=== PATIENT | male | born 1945 | race Caucasian/White ===

== ENCOUNTER 2019-07-18 08:54 | Observation (INO) | payer OTHER ==
[~2019-07-18] VITALS: Ht 182.9 cm; Wt 125.6 kg
[2019-07-18] VITALS (11 sets, daily range): BP systolic 87–126; BP diastolic 45–710
--- NOTE | ~2019-07-18 | H ---
[address] [address] HISTORY AND PHYSICAL Name: PHUC PRIETO Room: [address] Jolene Han#: [id number] Admission: 07/18/19 Attend Phys: Dinesh Diehl MD, Discharge: 07/19/19 Date of : 45 Report #: [id number] THIS REPORT FOR: //name// Please refer to the History and Physical performed in the physician's office. By: 1424Medical Records Staff EUN /HAYDEN
[2019-07-18 09:50] LABS: HEMATOCRIT 41.7 % (42.0-52.0); HEMOGLOBIN 14.2 gm/dL (14.0-18.0); MCH 30.5 pg (26.0-34.0); MCHC 33.9 g/dL (28.0-37.0); MCV 89.8 fL (80.0-100.0); MPV 8.8 fl. (7.2-11.1); RBC 4.65 mil/uL (4.50-6.00); RDW-CV 14.6 % (10.5-14.5); WBC 5.1 thou/uL (4.0-11.0)
[2019-07-18 10:01] LABS: ANION GAP 8 mmol/L (7-16); BUN 32 mg/dL (7-18); CALCIUM 9.6 mg/dL (8.5-10.1); CHLORIDE 104 mmol/L (98-107); CO2 28 mmol/L (21-32); CREATININE 1.4 mg/dL (0.6-1.3); GLUCOSE 111 mg/dL (70-99); POTASSIUM 4.1 mmol/L (3.5-5.1); SODIUM 140 mmol/L (136-145)
[2019-07-18 10:05] LABS: ALBUMIN 3.7 g/dL (3.4-5.0); ALKALINE PHOSPHATASE 58 U/L (46-116); CHOLESTEROL 172 mg/dL (<200); HDL CHOLESTEROL 43 mg/dL (>40); LDL CHOLESTEROL 99 mg/dL (<100); SERUM ASSESSMENT Clear; SGOT 20 U/L (15-37); SGPT 40 U/L (30-65); TOTAL BILIRUBIN 0.3 mg/dL (<0.1-1.0); TOTAL PROTEIN 7.1 g/dL (6.4-8.2); TRIGLYCERIDE 154 mg/dL (<150); VLDL 31 mg/dL (<40)
[2019-07-18 10:07] LABS: APTT 26.2 Seconds (25.0-31.3); PROTIME 10.2 Seconds (9.20-11.50)
[2019-07-18] MEDS ORDERED: INTERMEZZO3.5 MG PO (10:11)
[2019-07-18] MEDS ORDERED: ULTRAM 50MG TAB50 MG PO (10:12)
[2019-07-18] MEDS ORDERED: SIMVASTATIN80 MG PO (10:13)
[2019-07-18] MEDS ORDERED: FLOMAX0.4 MG PO (10:14)
[2019-07-18] MEDS ORDERED: PRINIVIL40 MG PO (10:15)
[2019-07-18] MEDS ORDERED: PAIN RELIEF TA1 EACH PO (10:16)
[2019-07-18] MEDS ORDERED: VITAMIN C WIT1000 MG PO (13:15)
[2019-07-18] MEDS ORDERED: VITAMIN D1000 UNI2 PO (13:15)
[2019-07-18] MEDS ORDERED: OMEGA 3 500 SO1 EACH PO (13:16)
[2019-07-18] MEDS ORDERED: CALCIUM 600+D1 EACH PO (13:17)
[2019-07-18] MEDS ORDERED: GLUCOSAMINE H1500 MG PO (13:18)
[2019-07-18] MEDS ORDERED: SUPER THERAVIT1 EACH PO (13:18)
[2019-07-18] MEDS ORDERED: COLLAGEN PLUS1 EACH PO (13:19)
[2019-07-18] MEDS ORDERED: TYLENOL PM PO (13:20)
[2019-07-18] MEDS ORDERED: NOVAFERRUM 5050 MG PO (13:20)
[2019-07-18] MEDS ORDERED: ASA81BEC PO (13:22)
[2019-07-18] MEDS ORDERED: GARCINIA CAMBO1 EACH PO (13:22)
[2019-07-18] MEDS ORDERED: SUPER B-50 COM1 EACH PO (13:24)
[2019-07-18 14:07] LABS: CK-MB MASS 1.7 ng/mL (<0.5-3.6); TROPONIN-I LEVEL <0.06 ng/mL (<0.06)
--- NOTE | 2019-07-18 14:36 | NUR ---
RECEIEVIED REPORT FROM SERGEY RN IN CLAIM CLINICIAN OF EXPECED ADMISSION POST HEART CATH AT 1226-PT REPORTED TO HAVE HAD 2 STENTS PLACED, 1 TO 2ND DIAGNOL AND 1 TO LAD WITH ACCESS TO RIGHT GROIN WITH ANGIOCEL NOTED-PT IS REPORTED TO NEED FOLLOW UP IN 2 WEEKS FOR FURTHER STENT PLACEMENT WELL- PT ARRIVED TO FLOOR AT 1240 VIA BED, SON AT SIDE- GROCERY ASSOCIATE PLACED ORDERED, SR NOTED-PT A&O X4- CONTINENT OF B/B- NOTED TO HAVE URINATED 400CC PER URINAL AT TIME OF ADMISSION- LCTA, DIMINISHED IN BASES- VS 97.1 18 117/74 60 98% ON RA- POST CATH VITALS IN PLACE ORDERED WITH CONTINUED GROIN CHECKS- RIGHT GROIN SIGHT WITH GAUZE/TRANSPARENT DRESSING C/D/I, NO HEMATOMA NOTED; SENSATION INTACT WITH CAP < 3- ABD SOFT/OBESE/NON-TENDER, BS X4 QUADS- LAST BM REPORTED 07/17/19- IV NOTED TO LEFT AC INTACT, IVF INFUSSING PRESCIBED- GOOD PO INTAKE NOTED WITH LUNCH- PT DENIES ANY C/O PAIN/DISCOMFORT- ADEQUITE EYE SIGHT NOTED WITH GLASSES IN PLACE- PT REPORTS TO HAVE PARTIAL, BUT NOT WITH HIM-SKIN C/D/I- CALL LIGHT AND PERSONAL BELONGINGS WITH IN REACH- PT MAKES NEEDS KNOWN- ALL NEEDS MET AT THIS TIME-WCTM
[2019-07-19 00:57] VITALS: BP 99/42
[2019-07-19 04:49] VITALS: BP 126/66
[2019-07-19 04:56] LABS: HEMATOCRIT 38.5 % (42.0-52.0); HEMOGLOBIN 12.9 gm/dL (14.0-18.0); MCH 30.2 pg (26.0-34.0); MCHC 33.6 g/dL (28.0-37.0); MPV 8.4 fl. (7.2-11.1); RBC 4.27 mil/uL (4.50-6.00); RDW-CV 14.8 % (10.5-14.5); WBC 7.8 thou/uL (4.0-11.0)
[2019-07-19 05:37] LABS: ALBUMIN 3.2 g/dL (3.4-5.0); CALCIUM 8.8 mg/dL (8.5-10.1); CK-MB MASS 2.1 ng/mL (<0.5-3.6); CREATININE 1.4 mg/dL (0.6-1.3); POTASSIUM 4.2 mmol/L (3.5-5.1); TOTAL BILIRUBIN 0.3 mg/dL (<0.1-1.0); TOTAL PROTEIN 6.4 g/dL (6.4-8.2); TROPONIN-I LEVEL 0.18 ng/mL (<0.06)
[2019-07-19 07:00] VITALS: BP 106/48
--- NOTE | 2019-07-19 07:37 | NUR ---
VSS. SEE MAR. SEE CHARTING. HOURLY ROUNDING FOR SAFETY. PROGRESSING TOWARDS GOALS.
--- NOTE | 2019-07-19 09:29 | EKG ---
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
--- NOTE | 2019-07-19 09:34 | EKG ---
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
[2019-07-19 09:49] VITALS: BP 95/45
--- NOTE | 2019-07-19 09:52 | NUR ---
INITAL ASSESSMENT COMPLETED CHARTED. VSS. TRACING SR ON MONITOR. PT DENIES PAIN, SOA, CP, N/V/D. NO NEW CONCERNS NOTED AT THIS TIME. HOURLY ROUNDING IN PLACE FOR PT SAFETY. CLWR.
[2019-07-19 10:06] VITALS: BP 95/45
[2019-07-19] MEDS ORDERED: BRILINTA60 MG PO (10:17)
--- NOTE | 2019-07-20 14:22 | CARD ---
[address] [address] CARDIAC CATH REPORT Name: PHCU PRIETO Room: [address] Jolene Han#: [id number] Admission: 07/18/19 Attend Phys: Dinesh Diehl MD, Discharge: 07/19/19 Date of : 45 Report #: [id number] THIS REPORT FOR: //name// APPROVED REPORT Study performed: 07/18/2019 09:53:14 Patient Details The patient is a 74 year-old male Event Personnel Dinesh Diehl Vibrator Equipment Tester, Hanna Thomas RN Side Panel Padder, Estevan Orozco RTR ScrubAniyah Becki RTR Monitor, Nickolas Ulrich PICKER / PACKER Monitor Procedures Performed Left Heart Cath w/or w/o Coronaries 4286645 [facility] Place w/wo Plasty Addl BR DIAG [address] w/wo Plasty Single LAD 593322 , Left Heart Catheterization Indication Positive stress test Risk Factors Hypercholesterolemia, Hypertension Admission/Lab Medications/Medications given during procedure Angiomax bolus and infusion Procedure Narrative The patient was brought electively to the Cardiac Catheterization Laboratory and was prepped and draped in a sterile manner. The right femoral was infiltrated with 2% Lidocaine subcutaneous anesthesia. A [place] 6 FR sheath was inserted into the RFA. Coronary angiography was performed using coronary diagnostic catheters. The right coronary system was accessed and visualized with a JR4 catheter. The left coronary system was accessed and visualized with a JL4 catheter. The left ventricle was accessed and visualized with a PIG catheter. Left ventricular/Aortic Valve gradient assessed via catheter pullback. Pre-demployment femoral angiogram was performed . The patient tolerated the procedure well and there were no complications associated with the procedure. There was no hematoma. 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 The left ventricular ejection fraction is estimated to be 60%. Left ventricular wall motion abnormalities are not present. There is no mitral insufficiency. Hemodynamics The aortic pressure is 134/51 mmHg with a mean of 74 mmHg. The left ventricular pressure is 119/6 mmHg with a mean of mmHg. The left ventricular end diastolic pressure is 14 mmHg. There was no gradient across the aortic valve upon pullback. PCI Technique Lesion Anticoagulation was achieved with Angiomax. Percutaneous coronary intervention was performed on the second diagnonal branch segment. The lesion stenosis prior to intervention was 90% with ZURDO 3 flow. A 6FR XB 3.5 100CM Guide Catheter was used to engage the ostium. A IG: BMW 190cm Interventional Guidewire was used to cross the lesion. BALLOON DILATION A Balloon catheter Mini Trek RX 2.0 X 8 was inserted and inflated up to 8.00atm for 9seconds. STENT DEPLOYMENT A drug-eluting stent [place] RX Stent 2.0X12mm was inserted and inflated up to 14.00atm for 8seconds. Final angiography reveals 0 % stenosis with ZURDO 3 flow. PCI Technique Lesion 2 [place] [address] CARDIAC CATH REPORT Name: PHUC PRIETO Room: [address] Jolene MAmmyRAmmy#: [id number] Admission: 07/18/19 Attend Phys: Dinesh Diehl MD, Discharge: 07/19/19 Date of : 45 Report #: [id number] Percutaneous Coronary Intervention was performed on the mid left anterior descending. Percutaneous coronary intervention was performed on the mid LAD. The lesion stenosis prior to intervention was 80% with ZURDO flow. Balloon Dilation A Balloon catheter Trek RX 2.75 X 12 was inserted and inflated up to 18.00atm for 10seconds. Stent Deployment A stent Gregg RX Stent 3.0X18mm was inserted and inflated up to 12.00atm for 9seconds. Additional Inflation: 12.00atm for 12seconds. Final angiography reveals 0 % stenosis with ZURDO 3 flow. PCI Technique Lesion 3 Percutaneous Coronary Intervention was performed on the ostium of the second diagonal. The lesion stenosis prior to intervention was 75% with ZURDO 3 flow. Balloon Dilation A Balloon catheter Trek RX 2.25 X 8 was inserted and inflated up to 10atm for (seconds. Final angiography reveals 20 % stenosis with ZURDO 3 flow. Conclusion #1 Significant coronary artery disease characterized by the following A 80% mid LAD stenosis with 75% ostial second diagonal and 90% mid second diagonal stenosis B 80% focal stenosis of the midportion of the anomalous origin circumflex which takes off from the right coronary cusp C nondominant right coronary artery with 70% proximal narrowing #2 normal left ventricular systolic function, estimate ejection fraction being 60% #3 normal left-sided hemodynamic study #4 successful percutaneous coronary [place] [address] CARDIAC CATH REPORT Name: PHUC PRIETO Room: [address] Jolene Han#: [id number] Admission: 07/18/19 Attend Phys: Dinesh Diehl MD, Discharge: 07/19/19 Date of : 45 Report #: [id number] of drug-eluting stent at the site of 80% mid LAD stenosis with 0% residual narrowing #5 successful percutaneous coronary intervention with deployment of drug-eluting stent at site of 90% mid second diagonal stenosis with 0% residual narrowing #6 successful percutaneous transluminal coronary angioplasty at the site of 75% ostial second diagonal narrowing with 20% residual narrowing. Recommendations Cardiac Risk Reduction Program Aggressive Medical Therapy Medications Administered Aspirin (any) Ticagrelor Diagnostic Cath Approved by: Dinesh Diehl MD Date/Time: 07/20/2019 14:20:44 <ELECTRONICALLY SIGNED> By: Dinesh Diehl MD, [facility] 07/20/19 1422 142 1422Dinesh Diehl MD, FACC /INF
--- NOTE | 2019-07-21 10:27 | D ---
[address] [address] DISCHARGE SUMMARY Name: PHUC PRIETO Room: [address] Jolene Han#: [id number] Admission: 07/18/19 Attend Phys: Dinesh Diehl MD, Discharge: 07/19/19 Date of : 45 Report #: [id number] THIS REPORT FOR: //name// CC: Dinesh Quinonez Castellanos DATE OF SERVICE: 07/19/2019 FINAL DISCHARGE DIAGNOSES: 1. Abnormal nuclear stress test. 2. Coronary artery disease. 3. Status post percutaneous coronary intervention of the left anterior descending and diagonal. 4. Hypertension. 5. Hyperlipidemia. 6. History of cerebrovascular accident. PROCEDURES: 07/18/2019 - left heart catheterization, selective coronary arteriography, and percutaneous coronary intervention with deployment of drug-eluting stents in the second diagonal and mid LAD. The patient is a 74-year-old male with a recently abnormal nuclear stress test. He has underlying hypertension, hyperlipidemia, and a history of remote CVA. He underwent cardiac catheterization on 07/18/2019, which revealed 90% second diagonal stenosis with 80% stenosis of the mid LAD after the first septal nut steamer and first diagonal. 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 I performed complex intervention on the LAD and diagonal with stenting of the diagonal and angioplasty and stenting of the LAD with a good angiographic result and 0% residual narrowing at both sites following stent deployment. He did well post-procedurally with good hemostasis at the right femoral site of catheterization. Laboratory revealed sodium 142, potassium 4.2, BUN 29 down from 32, creatinine 1.4, unchanged from preprocedurally. Glucose 105. Hemoglobin 12.9, white blood cell count 7800 with 194,000 platelets. Troponin birahima inconsequentially to 0.18. The patient ambulated in the hallways without difficulty and there was good hemostasis at the right femoral site of catheterization. He was discharged to home on the following medications: Ascorbic acid 1000 mg daily, aspirin 81 mg daily, calcium carbonate 1 tablet daily, cholecalciferol 1000 units daily, chromium gus supplement 1 tablet daily, glucosamine 1500 mg daily, iron 50 mg daily, lisinopril 40 mg daily, multivitamin 1 tablet daily, fish oil 520 [place] [address] DISCHARGE SUMMARY Name: PHUC PRIETO Room: [address] Jolene Han#: [id number] Admission: 07/18/19 Attend Phys: Dinesh Diehl MD, Discharge: 07/19/19 Date of : 45 Report #: [id number] daily, simvastatin 10 mg daily, tamsulosin 0.4 mg daily, ticagrelor 90 mg b.i.d., vitamin B 1 tablet daily, zolpidem 10 mg daily, and Tylenol PM at bedtime as well as tramadol 50 mg daily as needed. The patient is discharged to home in stable condition on 07/26/2019. He will require stage intervention to the anomalous origin circumflex, which has 80% stenosis in its proximal-mid portion. This was discussed with the patient. He will see my nurse practitioner, Adela Pickett, on 07/26/2019 in followup of this hospitalization. <ELECTRONICALLY SIGNED> By: Dinesh Diehl MD, FACC 07/21/19 1027 0949 1006Jospencer Diehl MD, FACC /nt
== END 2019-07-19 11:32 | disposition home or self-care (01) ==
LOC: M.CL 08:54 → M.TBA-CV 11:56 → M.2W 11:56 → M.CL 07-19 10:00 → M.2W 07-19 11:32
PROVIDERS: ADMIT Internal Medicine
DX: I25.10 Atherosclerotic heart disease of native coronary artery without angina pectoris (principal); I10 Essential (primary) hypertension; E78.5 Hyperlipidemia, unspecified; E78.00 Pure hypercholesterolemia, unspecified; Z86.73 Personal history of transient ischemic attack (TIA), and cerebral infarction without residual deficits; Z79.82 Long term (current) use of aspirin; Z79.899 Other long term (current) drug therapy; Z23 Encounter for immunization

== ENCOUNTER 2019-08-17 07:41 | Observation (INO) | payer OTHER ==
[2019-08-17] VITALS (9 sets, daily range): BP systolic 11–122; BP diastolic 48–75
[~2019-08-17] VITALS: Ht 182.9 cm; Wt 120.7 kg
[~2019-08-17 07:41] MED LIST: ASA81BEC PO; BRILINTA60 MG PO; CALCIUM 600+D1 EACH PO; COLLAGEN PLUS1 EACH PO; FLOMAX0.4 MG PO; GARCINIA CAMBO1 EACH PO; GLUCOSAMINE H1500 MG PO; INTERMEZZO3.5 MG PO; NOVAFERRUM 5050 MG PO; OMEGA 3 500 SO1 EACH PO; PAIN RELIEF TA1 EACH PO; PRINIVIL40 MG PO; SIMVASTATIN80 MG PO; SUPER B-50 COM1 EACH PO; SUPER THERAVIT1 EACH PO; TYLENOL PM PO; ULTRAM 50MG TAB50 MG PO; VITAMIN C WIT1000 MG PO; VITAMIN D1000 UNI2 PO
[2019-08-17 08:40] LABS: HEMATOCRIT 43.1 % (42.0-52.0); HEMOGLOBIN 14.7 gm/dL (14.0-18.0); MCH 30.4 pg (26.0-34.0); MCV 89.3 fL (80.0-100.0); MPV 8.5 fl. (7.2-11.1); RBC 4.83 mil/uL (4.50-6.00); RDW-CV 14.4 % (10.5-14.5)
[2019-08-17] MEDS ORDERED: VICODIN ES 7.51 EACH PO (08:43)
[2019-08-17 08:52] LABS: APTT 26.5 Seconds (25.0-31.3); PROTIME 10.2 Seconds (9.20-11.50)
[2019-08-17 08:57] LABS: ANION GAP 11 mmol/L (7-16); BUN 22 mg/dL (7-18); CALCIUM 9.9 mg/dL (8.5-10.1); CHLORIDE 102 mmol/L (98-107); CO2 26 mmol/L (21-32); CREATININE 1.5 mg/dL (0.6-1.3); GLUCOSE 111 mg/dL (70-99); POTASSIUM 4.2 mmol/L (3.5-5.1); SODIUM 139 mmol/L (136-145)
[2019-08-17 09:01] LABS: CHOLESTEROL 155 mg/dL (<200); HDL CHOLESTEROL 40 mg/dL (>40); LDL CHOLESTEROL 82 mg/dL (<100); SERUM ASSESSMENT Clear; TC:HDL 3.9 Ratio (Not establshd); TRIGLYCERIDE 169 mg/dL (<150); VLDL 34 mg/dL (<40)
--- NOTE | 2019-08-17 14:18 | EKG ---
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
--- NOTE | 2019-08-17 14:38 | CARD ---
[address] [address] CARDIAC CATH REPORT Name: PHUC PRIETO Room: [address] Jolene MAmmyRAmmy#: [id number] Admission: 08/17/19 Attend Phys: Dinesh Diehl MD, Discharge: Date of : 45 Report #: [id number] THIS REPORT FOR: //name// APPROVED REPORT Study performed: 08/17/2019 09:01:34 Patient Details Patient Status: Out-Patient Room #: The patient is a 74 year-old male Event Personnel Estevan Orozco RTR Monitor, Hanna Thomas RN RN, Nickolas Ulrich Holkins, John Federal Judge Procedures Performed Left Heart Cath w/or w/o Coronaries [id number] [facility] [address] Place w/wo Plasty Single CIRC [address]104 Hemostasis w/ Angioseal Indication Positive stress test, Chest pain Risk Factors Obesity, Hypercholesterolemia, Hypertension Previous Procedures/Diagnoses Previous PCI Admission/Lab Medications/Medications given during procedure Fentanyl IV 25 mcg, Midazolam (Versed) IV 1 mg, Lidocaine Subcut 20 ml, Nitroglycerin IC 150 mcg, Angiomax IV 18 ml, Angiomax IV 42.31 mg per kg, Dobutamine IV 5 mcg per kg per min, Ticagrelor PO 180 mg Procedure Narrative The patient was brought electively to the Cardiac Catheterization Laboratory and was prepped and draped in a sterile manner. The right femoral was infiltrated with 2% Lidocaine subcutaneous anesthesia. A 6fr Ultimum Sheath sheath was inserted into the right femoral artery. Coronary angiography was performed using coronary diagnostic catheters. The right coronary system was accessed and visualized with a Diagnostic JR4 6Fr catheter. The left coronary system was accessed and visualized with a Diagnostic JL4 6Fr catheter. The left ventricle was accessed and visualized with a Diagnostic 6Fr Pigtail catheter. Left ventricular/Aortic Valve [place] [address] CARDIAC CATH REPORT Name: PHUC PRIETO PILAR Room: [address] M.R.#: [id number] Admission: 08/17/19 Attend Phys: Dinesh Diehl MD, Discharge: Date of : 45 Report #: [id number] pullback. Pre-demployment femoral angiogram was performed . Closure device was deployed with a 6 Fr Angioseal. The patient tolerated the procedure well and there were no complications associated with the procedure. There was no hematoma. 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 The left ventricular pressure is 101/1 mmHg with a mean of mmHg. The left ventricular end diastolic pressure is 5 mmHg. There was no gradient across the aortic valve upon pullback. PCI Technique Lesion Anticoagulation was achieved with Angiomax. Patient was preloaded with Angiomax IV 18 ml. Percutaneous coronary intervention was performed on the proximal circumflex artery segment. The lesion stenosis prior to intervention was 90% with ZURDO 3 flow. A 6F JR 4.0 Guide Catheter was used to engage the ostium. A IG: BMW 190cm Interventional Guidewire was used to cross the lesion. BALLOON DILATION A Balloon catheter Trek RX 2.25 X 12 was inserted and inflated up to 14.00atm for 14seconds. Additional Inflation: 18.00atm for 17seconds. Additional Inflation: 18.00atm for 10seconds. STENT DEPLOYMENT A drug-eluting stent Gregg RX Stent 2.85X99vf, 2.25x8 was inserted and inflated up to 12.00atm for 12seconds. Additional Inflation: [address] [place] [address] CARDIAC CATH REPORT Name: PHUC PRIETO Room: [address] M.RAmmy#: [id number] Admission: 08/17/19 Attend Phys: Dinesh Diehl MD, Discharge: Date of : 45 Report #: [id number] 12.00atm for 10seconds. POST STENT DEPLOYMENT BALLOON DILATION A Balloon catheter [place] Trek RX 2.25 X 8 was inserted and inflated up to 18.00atm for 10seconds. Additional Inflation: 18.00atm for 17seconds. Additional Inflation: 18.00atm for 17seconds. Final angiography reveals 0 % stenosis with ZURDO 3 flow. COMMENTS The procedure was technically complex by virtue of the anomalous origin circumflex from the right coronary ostium with difficult guide engagement and stabilization prior to stent deployment. 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
[2019-08-18] VITALS: BP 107/57
--- NOTE | 2019-08-18 04:16 | NUR ---
PT ALERT ORIENTED. PT C/O BACK HURTING. HYDROCODONE GIVEN WITH HEATING PAD. PT RESTING QUIETLY. R GROIN SITE OSCAR WALLACE. TELEMETRY SHOWS SR. WILL CONTINUE TO MONITOR.
[2019-08-18 05:06] LABS: HEMATOCRIT 36.4 % (42.0-52.0); MCH 30.4 pg (26.0-34.0); MCHC 33.9 g/dL (28.0-37.0); MCV 89.5 fL (80.0-100.0); RBC 4.07 mil/uL (4.50-6.00); RDW-CV 14.4 % (10.5-14.5); WBC 7.3 thou/uL (4.0-11.0)
[2019-08-18 05:24] LABS: HEMOGLOBIN 12.3 gm/dL (14.0-18.0)
[2019-08-18 05:39] LABS: CALCIUM 8.4 mg/dL (8.5-10.1); CREATININE 1.4 mg/dL (0.6-1.3); TOTAL BILIRUBIN 0.3 mg/dL (<0.1-1.0)
[2019-08-18 05:41] LABS: TROPONIN-I LEVEL 1.93 ng/mL (<0.06)
[2019-08-18 08:30] VITALS: BP 142/66
--- NOTE | 2019-08-18 11:03 | NUR ---
cm completed initial assessment to discuss d/c planning. pt is a&ox4. pt states he lives @ home alone. active & independent w/cares. pt states he is retired. still drives. pt has supportive friend. friend picking up today @ d/c to drive him home and then back to [facility] tomorrow to brass pickler his truck. pt has no hx with snf. pt used n the pt but does not recall which agency he used. pt stated he's PCP's nurse came by today to see him and is arranging for him to do outpatient therapy at [facility], b/c it is about "a third of the distance." cm to cont to remain avial to assist as needed.
[2019-08-18 11:28] VITALS: BP 11/56
[2019-08-18 11:55] VITALS: BP 118/70
--- NOTE | 2019-08-18 12:58 | EKG ---
[place] [address] ELECTROCARDIOGRAM REPORT Name: PHUC PRIETO Room: [address] M.R.#: [id number] Admission: 08/17/19 Attend Phys: Dinesh Diehl MD, Discharge: 08/18/19 Date of : 45 Report #: [id number] THIS REPORT FOR: //name// [facility] Test Date: 2019-08-18 Test Time: 09:48:23 Pat Name: PHUC PRIETO Department: Room: [facility] Gender: M Recreation Manager: : 1945 Requested By: Dinesh Diehl Order Number: [id number] Reading MD: Dinesh Diehl Measurements Intervals [place] Rate: 84 P: 18 [place]: 152 QRS: 0 QRSD: 89 T: 42 QT: 340 QTc: 402 Interpretive Statements Sinus rhythm Compared to ECG 08/17/2019 12:14:54 No significant changes Electronically Signed On 08-18-2019 12:57:58 SUPERCHARGE REPAIR SUPERVISOR by Dinesh Diehl [email or web address] <ELECTRONICALLY SIGNED> By: Dinesh Diehl MD, [facility] 08/18/19 1257 7 Dinesh Diehl MD, FACC /EPI
--- NOTE | 2019-08-18 13:06 | D ---
[address] [address] DISCHARGE SUMMARY Name: [facility] PRIETO Room: [address] Jolene Han#: [id number] Admission: 08/17/19 Attend Phys: Dinesh Diehl MD, Discharge: 08/18/19 Date of : 45 Report #: [id number] THIS REPORT FOR: //name// CC: Dinesh Quinonez Castellanos DATE OF SERVICE: 08/18/2019 FINAL DISCHARGE DIAGNOSES: 1. Abnormal nuclear stress test. 2. Coronary artery disease. 3. 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 4. Hypertension. 5. Hyperlipidemia. 6. History of cerebrovascular accident. 7. Exogenous obesity. 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 The patient is a 74-year-old male with hypertension, hyperlipidemia and prior CVA. He recently noted dyspnea and some chest discomfort on exertion and had an abnormal nuclear stress test. Several weeks ago, he underwent cardiac catheterization with stenting of the proximal-mid LAD and second diagonal branch. 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 I deployed 2 Gregg drug-eluting stents in the proximal circumflex with 0% residual narrowing and ZURDO 3 flow of the distal vessel. There was a mild increase in troponin to 1.93 post-procedurally. Additional lab revealed a sodium 140, potassium 4.0, BUN 21 down from 22, creatinine 1.4 down from 1.5. Hemoglobin 12.3, white blood cell count 7300 with 157,000 platelets. There was good hemostasis at the right femoral site of catheterization. DISCHARGE MEDICATIONS: The patient was discharged to home on the following medications: Ascorbic acid 1000 mg daily, aspirin 81 mg daily, calcium carbonate, vitamin D3 one tablet daily, chromium picolinate-brindall tijerina 1 tablet daily, fish oil 1000 mg daily, glucosamine 1500 mg daily, iron polysaccharide complex 50 mg daily, lisinopril 40 mg daily, [place] [address] DISCHARGE SUMMARY Name: PHUC PRIETO Room: [address] Guille#: [id number] Admission: 08/17/19 Attend Phys: Dinesh Diehl MD, Discharge: 08/18/19 Date of : 45 Report #: [id number] minerals 1 tablet daily, omega 3 fatty acids 520 mg daily, simvastatin 10 mg daily, tamsulosin 0.4 mg daily, ticagrelor or Brilinta 90 mg b.i.d., vitamin B complex 1 tablet daily, zolpidem 10 mg at bedtime and Tylenol PM. The patient is scheduled to return to see my nurse practitioner, Adela Pickett on 08/26/2019 at 1000 hours and myself on 10/24/2019 at 1320 hours. Therefore, the patient is discharged to home in stable condition on the aforementioned medications with followup as described above. <ELECTRONICALLY SIGNED> By: Dinesh Diehl MD, [facility] 08/18/19 1306 [id number] Diehl MD, [facility] /nt
--- NOTE | 2019-08-18 16:41 | NUR ---
I ASSUMED CARE OF THE PATIENT AT 0700. HE IS ALERT AND ORIENTED X4 AND IS UP AD KO. BED IS IN THE LOW LOCKED POSITION AND CALL LIGHT IS IN REACH. HOURLY ROUNDING IS COMPLETED AND PATIENT NEEDS ARE MET. PAIN IS MANAGED WITH PRN MEDS. HE IS DISCHARGED TO HOME WITH CARDIAC REHAB ORDERS AND FOLLOWUP APPOINTMENTS WITH CARDIOLOGY. GROIN SITE IS C/D/I AND SOFT. HE IS DISCHARGED AT 1225.
== END 2019-08-18 12:25 | disposition home or self-care (01) ==
LOC: M.CL 07:41 → M.TBA-CV 11:15 → M.2W 11:15
PROVIDERS: ADMIT Internal Medicine
DX: I25.10 Atherosclerotic heart disease of native coronary artery without angina pectoris (principal); I10 Essential (primary) hypertension; E78.2 Mixed hyperlipidemia; I69.398 Other sequelae of cerebral infarction; H53.9 Unspecified visual disturbance; E66.9 Obesity, unspecified; Z68.36 Body mass index [BMI] 36.0-36.9, adult; Z79.82 Long term (current) use of aspirin; Z79.899 Other long term (current) drug therapy; Z87.891 Personal history of nicotine dependence; Z23 Encounter for immunization